=== PATIENT | female | born 2005 | race Caucasian/White ===

== ENCOUNTER 2025-08-20 08:54 | Outpatient (AMB) | payer MEDICAID, SELFPAY ==
[2025-08-20 09:01] VITALS: BP 121/80; PULSE 75; RESP 17; TEMP 36.7; O2SAT 97; BMI 34.9
--- NOTE | 2025-08-20 09:01 | AMB.OBINITIA ---
Vital Signs 08/20/25 09:01 Height 1.6 m Height Method Stated Weight 89.414 kg Weight Measurement Method Standing Scale BMI 34.9 BP 121/80 Blood Pressure Source Automatic Cuff Blood Pressure Location Right Upper Arm Position Sitting Respiration 17 Pulse 75 Pulse Source Monitor Temp 98.1 F Temp Source Temporal Artery Scan Pulse Oximetry (%) 97 Oxygen Delivery Method Room Air Allergies/Home Meds Allergies & Medications Allergies NKA* Allergy (Uncoded 08/20/25 09:04) Medication Reconciliation vits no.126-ferrous fum 28 mg iron-folic acid 800 mcg tablet (Classic ) tab PO 08/20/25 [History Confirmed 08/20/25] Intake Visit Data Collection New Patient or Established: New Patient (never been to [facility]) Reason for Visit:: OBI Seen by Clinical Staff ONLY (RN/MA): No Property Disposal Officer Required: No Do You Feel Safe at Home: Yes Authorities Contacted: N/A PCP or OBGYN visit in last 3 months: No Hx Now: Yes Are you currently on any form of Control: No Last menstrual period: 06/10/25 Pain Present Currently: No Pain Scale Used: Corona-Durán/Numerical Pain scale:: 0 Smoking Status Smoking Status: Never smoker Questionnaires Covid-19 Vaccine Questionnaire Has patient been vacinated for Covid-19 Have you been vacinated for Covid-19: Yes PHQ-9 PHQ-2 Over the last 2 weeks, how often have you been bothered by any of the following problems? 1. Little interest or pleasure in doing things: not at all 2. Feeling down, depressed, or hopeless: not at all Total score: 0 PHQ-9 3. Trouble falling or staying asleep, or sleeping too much: Not at all 4. Feeling tired or having little energy: Not at all 5. Poor appetite or overeating: Not at all 6. Feeling bad about yourself - or that you are a failure or have let yourself or your family down: Not at all 7. Trouble concentrating on things, such as reading the newspaper or watching television: Not at all 8. Moving or speaking so slowly that other people could have noticed? - Or the opposite - being so fidgety or restless that you have been moving around a lot more than usual: not at all 9. Thoughts that you would be better off or of hurting yourself in some way: Not at all Total score: 0 If you checked off any problems, how difficult have these problems made it for you to do your work, take care of things at home, or get along with other people?: not difficult at all Source: Developed by Drs. Moo Barnett, Shelia Hall, Norman Gailcia and colleagues, with an educational elliot from [employer]. Depression screen completed yes Social History Living Situation History Marital Status: Lives With: Spouse Housing: House Tobacco History Smoking Status: Never smoker Second Hand Smoke Exposure: No Alcohol History Alcohol Intake: Never Domestic Abuse History Do You Feel Safe at Home: Yes History of Present Illness HPI Narrative 20 Years old 1P0 at gestational age 10.2 weeks ?based on last menstrual period of dated?06/09/2025 . No complaints so far Here for first visit/ referred positive test at [facility] on 08/07/2025 LPS never LMP as above Ultrasound today /FHR present medical problems none AllergiesNKDA Surgical history neg social history neg NOTE : Patient wants NIPT and wants gender testing but does not want to know the result OB Ultrasound OB Ultrasound Ultrasound technique: transvaginal Gestational sac assessment: Presence, location, size, shape: IUP YS seen and fetus seen with FHR positive Maternal Anatomy Assessment Uterine position and size: RV uterus about 10 to 12 cm size / NT and adnexa negative Pap smear done Cervix: closed , thick and hign no lesion Adnexa (ovaries): negative OB Initial Visit Menstrual History Menstrual reliability: approximate (month known) Flow: light Menstrual regularity: regular Monthly: Yes Age at menarche: 11 On control pills at conception: No Associated symptoms (LMP): Reports other (no bleeding); Denies nausea, vomiting or fatigue OB History : 1 Para: 0 Infection History & Risk Evaluation History of STDs: none HIV risk evaluation: low risk Hepatitis B risk evaluation: low risk Patient or partner has history of Genital Herpes: No Genetic Screening & History Genetic Screening/Teratology Counseling - Includes patient, baby's father, or anyone in either family with: 1. Patient's age 35 years or older as of estimated date of delivery: No 2. Thalassemia (French, Yoruba, Mediterranean, or Background); MCV less than 80: No 3. Neural Tube Defect (Meningomyelocele, Spina Bifida, or Anencephaly): No 4. Congenital Heart Defect: No 5. Down Syndrome: No 6. Jesus-Sachs (Ashkenazi Yarsani, Cajun, Yakut Tanzanian): No 7. Costa Disease (Ashkenazi Yarsani): No 8. Familial Dysautonomia (Ashkenazi Yarsani): No 9. Sickle Cell Disease or Trait (): No 10. Hemophilia or other blood disorders: No 11. Muscular Dystrophy: No 12. Cystic Fibrosis: No 13. Wagoner's Chorea: No 14. Mental Retardation/Autism: No 15. Other inherited genetic or chromosomal disorder: No 16. Maternal Metabolic Disorder (EG,TYPE 1 Diabetes, PKU): No 17. Patient or baby's father had a child with defects not listed above: No 18. Recurrent loss or a stillbirth: No 19. Medications (including supplements, vitamins, herbs or otc drugs)/illicit/recreational drugs/alcohol since last menstrual period: No 20. Any other: No Infection History 1. Live with someone with TB or exposed to TB: No 2. Rash or viral illness since last menstrual period: No Other (see comments) Source: [employer] Review of Systems Review of Systems Narrative Review of Systems: Reviewed all 14 point review of systems and all is negative except as noted Constitutional Constitutional: Denies fatigue Gastrointestinal Gastrointestinal: Denies nausea and Denies vomiting Endocrine Endocrine: Denies fatigue Exam Narrative Physical exam: Alert and oriented x 3 no shortness of breath Pain no chest pain no palpitations Chest clear bilaterally no additional sounds, no wheezing no rales CVS regular rate and rhythm No CVAT Abdomen nontender, normal bowel sounds No guarding no rigidity No hernias Office Procedures OBC Clinic LOC & Office Proc's Nursing/Assessment Patient Status: Initial/New Patient OB Clinic Nursing Assessment: Medication Reconciliation, Update PMH in EMR and Vital Signs OB Clinic Coordination of Care: Complex Care and Chronic Disease 1-5, Education Complex Pt/Fam, Consent,records obtained, informed consent, Lab and Imaging orders and Staff clarify orders Special Needs: Heart tones New Patient Charge New Patient Point Assignment: [id number] New Patient Point Charge: PACKAGE SEALER MACHINE Level 4 ([id number]) Assessment & Plan Diagnosis / Problem List (1) : Status: Acute Plan 20-year-old 1 para 0 at 10 weeks and 2 days by LMP confirmed by pelvic exam and ultrasound today. First trimester labs and NIPT ordered. Pap smear was obtained Patient is taking vitamins Denies any problems/ Follow up in 4 weeks Additional Assessment New OB at 10.2 weeks / First vist / Routine Additional Plan Follow Up: 4 Weeks MEDART OPERATOR: Papsmear Pap Smear Procedure Chaparone in room during procedure?: Yes Procedure position: lithotomy Speculum inserted, cervix visualized: Yes Cervical appearance: normal Collection method: broom type device Specimen placed in liquid-based cytology medium: Yes Complications: No Patient tolerated procedure well: Yes Follow up pending results: appt for results review Procedure Notes:: uterus was R/V and 10 to 12 weeks Papsmear completed: yes
== END 2025-08-20 09:56 | disposition home or self-care (01) ==
LOC: HODSOBC 08:54
PROVIDERS: PCP Family Medicine; Referring Provider Family Medicine; Supervising Provider Obstetrics & Gynecology; Visit Provider Obstetrics & Gynecology
DX: Z34.01 Encounter for supervision of normal first pregnancy, first trimester (principal); Z3A.10 10 weeks gestation of pregnancy
CPT/HCPCS: 99204; G0463

== ENCOUNTER 2025-09-10 15:23 | Outpatient (AMB) | payer MEDICAID, SELFPAY ==
[2025-09-10 15:33] VITALS: BP 137/86; PULSE 87; RESP 18; TEMP 36.2; O2SAT 98; BMI 34.6
--- NOTE | 2025-09-10 15:33 | OBCLNT_ITS ---
Vital Signs 09/10/25 15:33 Height 1.6 m Height Method Stated Weight 88.677 kg Weight Measurement Method Standing Scale BMI 34.6 BP 137/86 H Blood Pressure Source Automatic Cuff Blood Pressure Location Left Upper Arm Position Sitting Respiration 18 Pulse 87 Pulse Source Monitor Temp 97.2 F Temp Source Oral Pulse Oximetry (%) 98 Oxygen Delivery Method Room Air Allergies/Home Meds Allergies & Medications Allergies NKA* Allergy (Uncoded 09/10/25 15:34) Medication Reconciliation vits no.126-ferrous fum 28 mg iron-folic acid 800 mcg tablet (Classic ) tab PO 08/20/25 [History Confirmed 09/10/25] Intake Visit Data Collection New Patient or Established: Established Patient (seen at [facility] within 3 years) Reason for Visit:: OBC Seen by Clinical Staff ONLY (RN/MA): No Plc Programmer Required: No Do You Feel Safe at Home: Yes Authorities Contacted: N/A PCP or OBGYN visit in last 3 months: Yes Date of Last PCP or OBGYN visit: 08/20/25 Hx Now: Yes Are you currently on any form of Control: No Pain Present Currently: No Pain Scale Used: Corona-Durán/Numerical Pain scale:: 0 Smoking Status Smoking Status: Never smoker Immunizations Flu Vaccine in the Last 12 Months: No Flu Vaccine Exclusion Criteria: No Exclusion Criteria Questionnaires Covid-19 Vaccine Questionnaire Has patient been vacinated for Covid-19 Have you been vacinated for Covid-19: Yes PHQ-9 PHQ-2 Over the last 2 weeks, how often have you been bothered by any of the following problems? 1. Little interest or pleasure in doing things: not at all 2. Feeling down, depressed, or hopeless: not at all Total score: 0 PHQ-9 3. Trouble falling or staying asleep, or sleeping too much: Not at all 4. Feeling tired or having little energy: Not at all 5. Poor appetite or overeating: Not at all 6. Feeling bad about yourself - or that you are a failure or have let yourself or your family down: Not at all 7. Trouble concentrating on things, such as reading the newspaper or watching television: Not at all 8. Moving or speaking so slowly that other people could have noticed? - Or the opposite - being so fidgety or restless that you have been moving around a lot more than usual: not at all 9. Thoughts that you would be better off or of hurting yourself in some way: Not at all Total score: 0 If you checked off any problems, how difficult have these problems made it for you to do your work, take care of things at home, or get along with other people?: not difficult at all Source: Developed by Drs. Moo Barnett, Shelia Hall, Norman Galicia and colleagues, with an educational elliot from [employer]. Depression screen completed yes Social History Living Situation History Lives With: Spouse Housing: House Tobacco History Smoking Status: Never smoker Second Hand Smoke Exposure: No Alcohol History Alcohol Intake: Never Domestic Abuse History Do You Feel Safe at Home: Yes Care OB Visit Log OB Flowsheet Initial Weight: Not Recorded Date -?-?-?-?-?-?-?-?-?-?-?-?- EGA Weight BP Alb Glu CTX Pres Fundal ht FHR Mov Dilation Station Effacement Hx Notes Visit Note 09/10/25 -?-?-?-?-?-?-?-?-?-?-?-?- 13w 2d 88.677 kg 137/86 155 TRAM Calculator Estimated Delivery Date Method Current WG Current Estimate 03/16/26 LMP (Certain) 13w 2d Notes Visit Date: 09/10/25 Last Updated by: Adrianne Garcia MD HPI Narrative 20 Years old 1P0 at gestational age 13.2 weeks ?based on last menstrual period of dated?06/09/2025 .and confirmed by EVS last visit / Pap was done last visit as well No complaints so far/ has no symptoms of marce vaginal infection/ pap WNL Gc and CT negative /Rh positive / Rubella Non Immune urine positive for coagulase negative saph and she is asymtomatic and declines treatment and will take po water and cran nunez juice plan repeat Urine C/S next visit order anatomy scan also carrier screening and genetic screening is negative gender reveal card given in a sealed envelope follow up 4 weeks Here for first visit on 08/20/2025 / referred positive test at [facility] on 08/07/2025 LPS 08/20/2025 LMP as above Ultrasound today /FHR present medical problems none AllergiesNKDA Surgical history neg social history neg NOTE : Patient wants NIPT and wants gender testing but does not want to know the result Office Procedures OBC Clinic LOC & Office Proc's Nursing/Assessment Patient Status: Established Patient OB Clinic Nursing Assessment: Medication Reconciliation and Update PMH in EMR OB Clinic Coordination of Care: Consent,records obtained, informed consent, Education Simp Pt/Fam, Lab and Imaging orders and Results/Orders obtained Special Needs: Heart tones Established Patient Charge Established Patient Point Assignment: 85 Established Patient Point Charge: EP Level 3 (80-115) Assessment & Plan Diagnosis / Problem List (1) : Status: Acute Qualifiers: Weeks of gestation: 13 weeks Qualified Code(s): Z3A.13 - 13 weeks gesta tion of (2) Retroverted uterus: Status: Acute Plan order a anatomy scan follow up in 4 weeks gender reveal given MSAFP and urine C/s next visit
== END 2025-09-10 16:00 | disposition home or self-care (01) ==
LOC: HODSOBC 15:23
PROVIDERS: Supervising Provider Obstetrics & Gynecology; Visit Provider Obstetrics & Gynecology
DX: O09.891 Supervision of other high risk pregnancies, first trimester (principal); O34.591 Maternal care for other abnormalities of gravid uterus, first trimester; N85.4 Malposition of uterus; Z3A.13 13 weeks gestation of pregnancy
CPT/HCPCS: 99213; G0463

== ENCOUNTER 2025-10-06 14:26 | Outpatient (AMB) | payer MEDICAID, SELFPAY ==
[2025-10-06 14:39] VITALS: BP 129/82; PULSE 79; RESP 18; TEMP 36.8; O2SAT 98; BMI 35.3
--- NOTE | 2025-10-06 14:39 | OBCLNT_ITS ---
Vital Signs 10/06/25 14:39 Height 1.6 m Height Method Stated Weight 90.492 kg Weight Measurement Method Standing Scale BMI 35.3 BP 129/82 Blood Pressure Source Automatic Cuff Blood Pressure Location Right Upper Arm Position Sitting Respiration 18 Pulse 79 Pulse Source Monitor Temp 98.2 F Temp Source Temporal Artery Scan Pulse Oximetry (%) 98 Oxygen Delivery Method Room Air Allergies/Home Meds Allergies & Medications Allergies NKA* Allergy (Uncoded 10/06/25 15:04) Medication Reconciliation vits no.126-ferrous fum 28 mg iron-folic acid 800 mcg tablet (Classic ) tab PO 08/20/25 [History Confirmed 10/06/25] Immunizations Immunizations Flu Vaccine in the Last 12 Months: No Flu Vaccine Exclusion Criteria: Refused by Patient Care OB Visit Log OB Flowsheet Initial Weight: Not Recorded Date -?-?-?-?-?-?-?-?-?-?-?-?- EGA Weight BP Alb Glu CTX Pres Fundal ht FHR Mov Dilation Station Effacement Hx Notes Visit Note 09/10/25 -?-?-?-?-?-?-?-?-?-?-?-?- 13w 2d 88.677 kg 137/86 155 10/06/25 -?-?-?-?-?-?-?-?-?-?-?-?- 17w 0d 90.492 kg 129/82 17 147 TRAM Calculator Estimated Delivery Date Method Current WG Current Estimate 03/16/26 LMP (Certain) 18w 0d Notes Visit Date: 10/06/25 Last Updated by: Adrianne Garcia MD 20 years at 17 weeks/ MSAFP today She was counselled on flu vaccine / did not agree to take it today / rubella NI / Rh positive / No complaints / follow up in 4 weeks Visit Date: 09/10/25 Last Updated by: Adrianne Garcia MD HPI Narrative 20 Years old 1P0 at gestational age 13.2 weeks ?based on last menstrual period of dated?06/09/2025 .and confirmed by EVS last visit / Pap was done last visit as well No complaints so far/ has no symptoms of marce vaginal infection/ pap WNL Gc and CT negative /Rh positive / Rubella Non Immune urine positive for coagulase negative saph and she is asymtomatic and declines treatment and will take po water and cran nunez juice plan repeat Urine C/S next visit order anatomy scan also carrier screening and genetic screening is negative gender reveal card given in a sealed envelope follow up 4 weeks Here for first visit on 08/20/2025 / referred positive test at [facility] on 08/07/2025 LPS 08/20/2025 LMP as above Ultrasound today /FHR present medical problems none AllergiesNKDA Surgical history neg social history neg NOTE : Patient wants NIPT and wants gender testing but does not want to know the result Office Procedures OBC Clinic LOC & Office Proc's Nursing/Assessment Patient Status: Established Patient OB Clinic Nursing Assessment: Medication Reconciliation, Update PMH in EMR and Vital Signs OB Clinic Coordination of Care: Complex Care and Chronic Disease 1-5, Education Complex Pt/Fam, Consent,records obtained, informed consent, Lab and Imaging orders, Results/Orders obtained and Staff clarify orders Special Needs: Heart tones Established Patient Charge Established Patient Point Assignment: 140 Established Patient Point Charge: EP Level 4 (120-155) Assessment & Plan Diagnosis / Problem List (1) : Status: Acute Qualifiers: Weeks of gestation: 17 weeks Qualified Code(s): Z3A.17 - 17 weeks gestation of Additional Plan MSAFP today /follow up in 4 weeks 20 years at 17 weeks/ MSAFP today She was counselled on flu vaccine / did not agree to take it today / rubella NI / Rh positive / No complaints / follow up in 4 weeks Follow Up: 4 Weeks
== END 2025-10-06 15:10 | disposition home or self-care (01) ==
LOC: HODSOBC 14:26
PROVIDERS: Supervising Provider Obstetrics & Gynecology; Visit Provider Obstetrics & Gynecology
DX: Z34.02 Encounter for supervision of normal first pregnancy, second trimester (principal); Z3A.17 17 weeks gestation of pregnancy; Z28.21 Immunization not carried out because of patient refusal
CPT/HCPCS: 99214; G0463